=== PATIENT | male | born 1960 | race Caucasian/White ===

== ENCOUNTER 2020-01-12 19:45 | Emergency (ER) | payer MEDICARE, MEDICAID, SELFPAY ==
--- NOTE | 2020-01-12 19:46 | XR_ITS ---
WS: [id number] Portable AP upright chest, 01/12/2020 Clinical Data: cp Comparison: None. Findings: No nodules, masses or effusions are seen. The heart is normal. The pulmonary vascularity is not increased. No pneumonia or pneumothorax is seen. There are scattered granulomas throughout the l ungs. XR/XR chest 1V portable [id number] Impression: Negative chest.
--- NOTE | 2020-01-12 19:46 | ECG_ITS ---
[facility] Test Date: 2020-01-12 Pat Name: rock jc Department: Room: Gender: Male [place] Operator: : 1960 Requested By: Dario Zamora Order Number: [id number] Torie MD: Louisa Ellison M.D. Measurements Intervals [place] Rate: 65 P: 64 [place]: 185 QRS: 65 QRSD: 93 T: 71 QT: 410 QTc: 429 Interpretive Statements SINUS RHYTHM No previous ECG available for comparison Electronically Signed On 01-13-2020 21:13:01 CDT by Louisa Ellison M.D. [id number]
[2020-01-12 20:04] VITALS: BP 150/85; PULSE 60; RESP 16; TEMP 36.2; O2SAT 99; BMI 23.0
--- NOTE | 2020-01-12 20:31 | ED_ITS ---
HPI - Syncope General: Chief Complaint: Syncope Stated Complaint: collapsed/ wasn't breathing/ irreg hr Time Seen by Provider: 01/12/20 20:23 Source: patient Mode of arrival: ambulatory Limitations: no limitations History of Present Illness: HPI narrative: 59-year-old male states he was outside roughly 1 hour ago had a syncopal event. He states he had no chest pain or headache before. Patient states that he passed out and was out for roughly 1 minute. He states that afterwards he did vomit. He denies any chest pain or headache afterwards. He states he feels completely fine at baseline currently. He denies any history of coronary events. Denies any worsening improving factors. MD complaint: loss of consciousness Associated symptoms: Deny abdominal pain, chest pain, fever(s), headache(s) or nausea Review of Systems Const: Denies: fever(s), chills, body aches or change in appetite Eyes: Denies: blurry vision or eye discomfort ENMT: Denies: throat pain or dental pain Card: Reports: syncope; Denies: chest pain Resp: Denies: dyspnea GI: Denies: abdominal pain, nausea, vomiting or diarrhea : Denies: dysuria Musc: Denies: neck pain or back pain Skin/Breast: Denies: rash Neuro: Denies: headache(s) Psych: Denies: depression Matthias/Lymph: Denies: easy bruising All/Imm: Denies: urticaria Physical Exam Const: COMMON NORMALS: no acute distress, patient oriented x3 and healthy appearing HENMT: COMMON NORMALS: normocephalic and atraumatic HEAD & SCALP: normocephalic and atraumatic Eye: COMMON NORMALS: Equal, round and reactive pupils present and EOMs intact bilaterally PUPIL: Yes Equal, round and reactive pupils present Neck/C-Spine: COMMON NORMALS: full ROM and supple Chest: COMMONS NORMALS: normal inspection of the chest and normal palpation of entire chest wall Resp: COMMON NORMALS: normal respiratory effort, No retractions, No use of accessory muscles and clear to auscultation bilaterally AUSCULTATION: clear to auscultation bilaterally Cardio: COMMON NORMALS: regular rate, regular rhythm and No murmurs present (Cardio) RATE: regular rate RHYTHM: regular rhythm GI: COMMON NORMALS: Normal to inspection, nondistended, normoactive bowel sounds present, Soft to palpation, non-tender and no masses PALPATION: Yes Soft to palpation Extremity: COMMON NORMALS: normal to inspection and full ROM Neuro: COMMON NORMALS: patient oriented x3, moves all extremities and no focal motor deficits Psych: COMMON NORMALS: mental status grossly normal, Normal thought process present and cooperative THOUGHT PROCESS: Normal thought process present Skin: COMMON NORMALS: no rashes or lesions noted and no wounds GENERAL SKIN EXAM: no rashes or lesions noted Course Vital Signs: Vital signs: Vital Signs Temperature 97.2 F L 01/12/20 20:04 Pulse Rate 53 L 01/12/20 22:22 Respiratory Rate 18 01/12/20 22:22 Blood Pressure 142/80 01/12/20 22:22 Pulse Oximetry 96 01/12/20 22:22 MDM - Syncope MDM Narrative: Medical decision making narrative: Patient presents here with a syncopal event. Likely vasovagal. Patient EKG and lab work here is normal and head CT is normal as well. I did offer patient mission but he states he feels improved and would like to go home. He is to follow-up with his PCP in 3 to 5 days return to the ER if worsening. He understands and agrees to plan. Lab Data: Labs: Lab Results 01/12/20 01/12/20 01/12/20 Range/Units 21:32 21:32 21:32 WBC 9.7 (4.0-10.0) 10^3/ uL RBC 4.02 L (4.1-5.3) 10^6/u L Hgb 13.6 (11.7-16.6) g/dL Hct 39.5 L (42.0-52.0) % MCV 98.3 H (80-94) fL MCH 33.8 (28.0-34.0) pg MCHC 34.4 (30.0-36.0) g/dL RDW 12.1 (12.1-15.1) % Plt Count 222 (130-400) 10^3/c mm MPV 8.9 (7.4-10.4) fL Neut % (Auto) 81.3 % Lymph % (Auto) 13.0 % [place] % (Auto) 4.5 % Eos % (Auto) 0.4 % Baso % (Auto) 0.4 % Neut # (Auto) 7.90 H (1.8-7.7) 10^3/u L Lymph # (Auto) 1.3 (0.8-4.8) 10^3/u L [place] # (Auto) 0.4 (0.2-0.9) 10^3/u L Eos # (Auto) 0.0 (0.0-0.8) 10^3/u L Baso # (Auto) 0.0 (0.0-0.1) 10^3/u L Nucleated RBC % (a uto) 0 % Nucleated RBCs # 0.0 /100WBC PT 12.40 (12.1-14.9) SECO NDS INR 0.90 (0.8-1.2) Sodium 133 L (136-145) mmol/L Potassium 4.0 (3.5-5.1) mmol/L Chloride 96 L (98-107) mmol/L Carbon Dioxide 24 (22-29) mmol/L Anion Gap 17.0 (5-19) BUN 7 L (8-23) mg/dL Creatinine 0.8 (0.7-1.2) mg/dL GFR Calculation 98.6 (90-130) mL/min Glucose 116 H (65-115) mg/dL Calculated Osmolal ity 273 L (285-295) mOsm/k g Calcium 9.6 (8.5-10.5) mg/dL Total Bilirubin 0.6 (0.15-1.2) mg/dL AST 37 (0-40) U/L ALT 33 (0-41) U/L Alkaline Phosphata se 82 (40-130) IU/L Troponin T Baselin e (0-15) ng/L Total Protein 7.0 (6.6-8.7) g/dL Albumin 4.9 (3.5-5.2) g/dL Globulin 2.1 (1.3-4.6) g/dL 01/12/20 Range/Units 21:32 WBC (4.0-10.0) 10^3/ uL RBC (4.1-5.3) 10^6/u L Hgb (11.7-16.6) g/dL Hct (42.0-52.0) % MCV (80-94) fL MCH (28.0-34.0) pg MCHC (30.0-36.0) g/dL RDW (12.1-15.1) % Plt Count (130-400) 10^3/c mm MPV (7.4-10.4) fL Neut % (Auto) % Lymph % (Auto) % [place] % (Auto) % Eos % (Auto) % Baso % (Auto) % Neut # (Auto) (1.8-7.7) 10^3/u L Lymph # (Auto) (0.8-4.8) 10^3/u L [place] # (Auto) (0.2-0.9) 10^3/u L Eos # (Auto) (0.0-0.8) 10^3/u L Baso # (Auto) (0.0-0.1) 10^3/u L Nucleated RBC % (a uto) % Nucleated RBCs # /100WBC PT (12.1-14.9) SECO NDS INR (0.8-1.2) Sodium (136-145) mmol/L Potassium (3.5-5.1) mmol/L Chloride (98-107) mmol/L Carbon Dioxide (22-29) mmol/L Anion Gap (5-19) BUN (8-23) mg/dL Creatinine (0.7-1.2) mg/dL GFR Calculation (90-130) mL/min Glucose (65-115) mg/dL Calculated Osmolal ity (285-295) mOsm/k g Calcium (8.5-10.5) mg/dL Total Bilirubin (0.15-1.2) mg/dL AST (0-40) U/L ALT (0-41) U/L Alkaline Phosphata se (40-130) IU/L Troponin T Baselin e 9 (0-15) ng/L Total Protein (6.6-8.7) g/dL Albumin (3.5-5.2) g/dL Globulin (1.3-4.6) g/dL Imaging Data^: CT Head: Attestation: I personally reviewed and interpreted this imaging study as follows: Radiologist's impression: [address] [address] [address] Scan Report Signed Patient: rock babita Unit #: [id number] : 1960 Age/Sex: 59 / M ADM Date: 01/12/20 Loc: ER Room/Bed: Attending Dr: Ordering Provider/Ordering MD: Dario Zamora MD Date of Service: 01/12/20 Procedure(s): CT head wo con* [id number] Accession Number(s): [id number] Report Number: [id number] PROCEDURE INFORMATION: Exam: CT Head Without Contrast Exam date and time: 01/12/2020 8:33 PM Age: 59 years old Clinical indication: Syncope and collapse TECHNIQUE: Imaging protocol: Computed tomography of the head without contrast. Radiation optimization: All CT scans at this facility use at least one of these dose optimization techniques: automated exposure control; mA and/or kV adjustment per patient size (includes targeted exams where dose is matched to clinical indication); or iterative reconstruction. ADDITIONAL STUDY INFORMATION: Total DLP (mGy-cm): 894.56 COMPARISON: No relevant prior studies available. FINDINGS: There are prominent intracranial arterial calcifications. Evaluation of the brain demonstrates no other areas of abnormal density. There is mild cerebral cortical atrophy. Ventricles do not appear significantly dilated. No depressed calvarial fracture is demonstrated. Visualized paranasal sinuses and mastoid air cells demonstrate no significant opacification. There is aeration of the left anterior clinoid process and the optic nerve traverses this region. CT/CT head wo con* [id number] IMPRESSION: No acute intracranial process is demonstrated. Discharge Plan Discharge Patient Disposition: Home Clinical Impression: Syncope Qualifiers: Syncope type: unspecified Qualified Code(s): R55 - Syncope and collapse Condition: Stable Prescriptions: No Action acetaminophen 325 mg Tablet 325 mg PO QID PRN (Reason: Pain) RF: 0 trazodone 50 mg tablet See Rx Instructions .ROUTE .COMPLEX RF: 0 atorvastatin 10 mg tablet 10 mg PO DAILY RF: 0 meloxicam 15 mg tablet 15 mg PO DAILY RF: 0 gabapentin 400 mg capsule 400 mg PO TID RF: 0 Calcium 600 600 mg calcium (1,500 mg) Tablet 600 mg PO DAILY RF: 0 baclofen 10 mg tablet 10 mg PO TID RF: 0 pantoprazole 40 mg tablet,delayed release (DR/EC) 40 mg PO DAILY RF: 0 metoprolol succinate 25 mg tablet extended release 24 hr 25 mg PO DAILY RF: 0 lisinopril 40 mg tablet 40 mg PO DAILY RF: 0 CoQ-10 100 mg Capsule 100 mg PO DAILY RF: 0 hydrochlorothiazide 12.5 mg tablet 12.5 mg PO DAILY RF: 0 Fish Oil 360-1,200 mg Capsule 1 cap PO DAILY RF: 0 potassium gluconate 595 mg (99 mg) Tablet 595 mg PO DAILY RF: 0 One-A-Day Men's 50 Plus 400-20-370 mcg Tablet 1 tab PO DAILY RF: 0 Discharge Orders: Discharge Order (Routine); Ordered 01/12/20 Ordered By: Dario Zamora Discharge Diet: Advance as tolerated Discharge Activity: Resume usual activity Patient Instructions: Syncope (ED) Discharge Date/Time: 01/12/20 22:26 Coding Level of Care Code ED Pmo Analyst for Alexandre Elizondo Exam Comprehensive
[2020-01-12 21:36] LABS: Basophils % 0.4 %; Eosinophils % 0.4 %; Hematocrit 39.5 % (42.0-52.0); Hemoglobin 13.6 g/dL (11.7-16.6); Lymphocytes # 1.3 10^3/uL (0.8-4.8); Mean Corpuscular HGB Conc 34.4 g/dL (30.0-36.0); Mean Corpuscular Hemoglobin 33.8 pg (28.0-34.0); Mean Corpuscular Volume 98.3 fL (80-94); Mean Platelet Volume 8.9 fL (7.4-10.4); Monocytes # 0.4 10^3/uL (0.2-0.9); Monocytes % 4.5 %; Neutrophils % 81.3 %; Nucleated Red Blood Cells % 0 %; Platelet Count 222 10^3/cmm (130-400); Red Blood Count 4.02 10^6/uL (4.1-5.3); Red Cell Distribution Width 12.1 % (12.1-15.1); White Blood Count 9.7 10^3/uL (4.0-10.0)
[2020-01-12 22:01] LABS: Alanine Aminotransferase 33 U/L (0-41); Albumin Level 4.9 g/dL (3.5-5.2); Alkaline Phosphatase 82 IU/L (40-130); Aspartate Amino Transferase 37 U/L (0-40); Blood Urea Nitrogen 7 mg/dL (8-23); Calcium 9.6 mg/dL (8.5-10.5); Carbon Dioxide 24 mmol/L (22-29); Chloride 96 mmol/L (98-107); Globulin 2.1 g/dL (1.3-4.6); Glomerular Filtration Rate 98.6 mL/min (90-130); Glucose 116 mg/dL (65-115); Osmolality Calculated 273 mOsm/kg (285-295); Sodium 133 mmol/L (136-145); Total Bilirubin 0.6 mg/dL (0.15-1.2)
[2020-01-12 22:03] LABS: Troponin(5th) Baseline 9 ng/L (0-15)
[2020-01-12 22:21] VITALS: BP 142/80; PULSE 53; RESP 16; O2SAT 96
[2020-01-12 22:22] VITALS: BP 142/80; PULSE 53; RESP 18; O2SAT 96
== END 2020-01-12 22:26 | disposition home or self-care (01) ==
PROVIDERS: Emergency Provider Emergency Medicine
DX: R55 Syncope and collapse (principal)
CPT/HCPCS: 12345; 70450; 71045; 80053; 84484; 85025; 85610; 93005; 99283; 99284